=== PATIENT | female | born 1960 | race Caucasian/White ===

== ENCOUNTER → 2019-03-23 | Outpatient (CLI) | payer OTHER ==
--- NOTE | 2019-03-24 09:00 | CR ---
DATE OF SERVICE: 03/23/2019 CLINICAL DATA: Pain in right knee. RIGHT KNEE: No acute fracture or dislocation. No lytic or blastic bone lesions. No joint effusion. No significant arthritic changes. [id number] MTDD
== END ==
LOC: LB.CLINIC 15:01
PROVIDERS: ATTEND Family Medicine
DX: M25.561 Pain in right knee (principal)
CPT/HCPCS: 73562-RT